=== PATIENT | male | born 1995 | race Caucasian/White ===

== ENCOUNTER 2019-02-06 11:11 | Emergency (ER) | payer BC ==
[2019-02-06 11:37] VITALS: BP 122/82
--- NOTE | 2019-02-06 12:37 | UC ---
Complaint Male HPI - HPI Summary HPI Summary: 23-year-old male comes in with a chief complaint that his sexual partner was just diagnosed with Trichomonas. She was diagnosed through Pap smear and was asymptomatic. Patient is asymptomatic. The patient and his partner have been together for 3 weeks. Patient denies any other concerns for STI. No complaint of dysuria or lesions or testicular pain abdominal pain. - History of Current Complaint Chief Complaint: UCSTDScreening Stated Complaint: PERSONAL Time Seen by Provider: 02/06/19 12:10 Pain Intensity: 0 - Allergies/Home Medications Allergies/Adverse Reactions: Allergies Allergy/AdvReac Type Severity Reaction Status Date / Time No Known Allergies Allergy Verified 02/06/19 11:32 PMH/Surg Hx/FS Hx/Imm Hx Previously Healthy: Yes - Surgical History Surgical History: None - Family History Known Family History: Positive: Non-Contributory - Social History Alcohol Use: Rare Substance Use Type: None Smoking Status (MU): Smoker, Current Status Unknown Amount Used/How Often: 1 can/ day Review of Systems All Other Systems Reviewed And Are Negative: Yes Constitutional: Positive: Negative Skin: Positive: Negative Eyes: Positive: Negative ENT: Positive: Negative Respiratory: Positive: Negative Cardiovascular: Positive: Negative Gastrointestinal: Positive: Negative Motor: Positive: Negative Neurovascular: Positive: Negative Musculoskeletal: Positive: Negative Neurological: Positive: Negative Psychological: Positive: Negative Is Patient Immunocompromised?: No Physical Exam Triage Information Reviewed: Yes Appearance: Well-Appearing, No Pain Distress, Well-Nourished Vital Signs: Initial Vital Signs Temp 97.5 F 02/06/19 11:33 Pulse 55 02/06/19 11:33 Resp 16 02/06/19 11:33 BP 122/82 02/06/19 11:33 Pulse Ox 100 02/06/19 11:33 Vital Signs Reviewed: Yes Eye Exam: Normal Eyes: Positive: Conjunctiva Clear Neck: Positive: Supple Respiratory: Positive: Lungs clear, Normal breath sounds, No respiratory distress Cardiovascular: Positive: RRR Male Genital Exam: Positive: Other - Patient asymptomatic no genital examination done at this visit. Musculoskeletal: Positive: Strength Intact, ROM Intact Neurological: Positive: Alert, Muscle Tone Normal Psychological: Positive: Age Appropriate Behavior Skin Exam: Normal Complaint Male Course/Dx - Course Course Of Treatment: Urine collected for Trichomonas vaginalis. Patient treated with Flagyl 2 g by mouth single dose. But the patient know that he has partner should not have sexual relations for at least one week after both have been treated and are completely asymptomatic. Patient to get reevaluated if worse or not improving or any other questions or concerns. - Differential Dx/Diagnosis Provider Diagnosis: Trichomonas exposure Discharge ED - Sign-Out/Discharge Documenting (check all that apply): Patient Departure All imaging exams completed and their final reports reviewed: No Studies - Discharge Plan Condition: Stable Disposition: HOME Prescriptions: metroNIDAZOLE [Flagyl 500 MG TAB] 2,000 mg PO ONCE #4 tab Patient Education Materials: Trichomoniasis (ED) Referrals: [facility] [place] [facility]IAN REFERRAL [Outside] Additional Instructions: FOLLOW UP WITH YOUR DOCTOR IF NOT COMPLETELY IMPROVED. GET RECHECKED SOONER IF YOUR CONDITION WORSENS OR ANY QUESTIONS OR CONCERNS. - Billing Disposition and Condition Condition: STABLE Disposition: Home
[2019-02-09 19:42] LABS: Trichomonas vaginalis SOURCE: Urine (Male Patient)
== END 2019-02-06 13:05 | disposition home or self-care (01) ==
LOC: UCEAST 11:11
DX: Z20.818 Contact with and (suspected) exposure to other bacterial communicable diseases (principal)
CPT/HCPCS: 87661; 99202; G0463